=== PATIENT | female | born 1975 | race Caucasian/White ===

== ENCOUNTER 2018-09-01 18:14 | Emergency (ER) | payer OTHER ==
[2018-09-01 18:41] VITALS: BP 139/70
--- NOTE | 2018-09-24 15:09 | UC ---
Throat Pain/Nasal Jann HPI - HPI Summary HPI Summary: Ill since Monday with URI symptoms - History of Current Complaint Chief Complaint: UCGeneralIllness Stated Complaint: SORE THROAT,FEVER,ACHY Time Seen by Provider: 09/01/18 18:46 Hx Obtained From: Patient Hx Last Menstrual Period: 08/20/18 ?: No Onset/Duration: Gradual Onset Severity: Mild Pain Intensity: 10 Pain Scale Used: 0-10 Numeric Cough: Nonproductive Associated Signs & Symptoms: Positive: Sinus Discomfort, Nasal Discharge - Allergies/Home Medications Allergies/Adverse Reactions: Allergies Allergy/AdvReac Type Severity Reaction Status Date / Time Penicillins Allergy Unknown Verified 09/01/18 18:38 Reaction Details Sulfa (Sulfonamide Allergy Rash Verified 09/01/18 18:38 Antibiotics) Home Medications: Home Medications Acetaminophen [Tylenol Extra Strength] 500 mg PO DAILY 09/01/18 [History Confirmed 09/01/18] Nebivolol HCl [Bystolic] 10 g PO BID 09/01/18 [History Confirmed 09/01/18] PMH/Surg Hx/FS Hx/Imm Hx Previously Healthy: Yes - Surgical History Surgical History: Yes Surgery Procedure, Year, and Place: CHOLECYSTECTOMY. ECTOPIC - Family History Known Family History: Negative: Cardiac Disease, Diabetes - Social History Alcohol Use: Rare Substance Use Type: None Smoking Status (MU): Never Smoked Tobacco Review of Systems All Other Systems Reviewed And Are Negative: Yes Constitutional: Positive: Fever Skin: Positive: Negative Eyes: Positive: Negative ENT: Positive: Ear Ache, Nasal Discharge, Sinus Congestion Respiratory: Positive: Cough - Dry non-productive cough Cardiovascular: Positive: Negative Gastrointestinal: Positive: Negative Genitourinary: Positive: Negative Motor: Positive: Negative Neurovascular: Positive: Negative Musculoskeletal: Positive: Negative Neurological: Positive: Negative Psychological: Positive: Negative Is Patient Immunocompromised?: No Physical Exam Triage Information Reviewed: Yes Appearance: Well-Appearing, No Pain Distress, Well-Nourished Vital Signs: Initial Vital Signs Temp 97.3 F 09/01/18 18:36 Pulse 73 09/01/18 18:36 Resp 18 09/01/18 18:36 BP 139/70 09/01/18 18:36 Pulse Ox 99 09/01/18 18:36 Vital Signs Reviewed: Yes Eye Exam: Normal ENT: Positive: Hearing grossly normal, Pharynx normal, Nasal congestion, Nasal drainage - Clear nasal coryza, TMs normal, Uvula midline. Negative: Tonsillar swelling, Tonsillar exudate, Trismus, Muffled voice Neck exam: Normal Respiratory Exam: Normal Cardiovascular Exam: Normal Abdominal Exam: Normal Bowel Sounds: Positive: Present Musculoskeletal Exam: Normal Neurological Exam: Normal Psychological Exam: Normal Skin Exam: Normal Throat Pain/Nasal Course/Dx - Course Course Of Treatment: Comfortable here. - Differential Dx/Diagnosis Differential Diagnosis/HQI/PQRI: URI Provider Diagnosis: URI (upper respiratory infection) Discharge - Sign-Out/Discharge Documenting (check all that apply): Patient Departure All imaging exams completed and their final reports reviewed: No Studies - Discharge Plan Condition: Good Disposition: HOME Patient Education Materials: Upper Respiratory Infection (DC) Referrals: Jessie Crowell NP [Primary Care Provider] - Additional Instructions: Increase fluids, follow up with your primary care provide if no improvement in 4 -5 days or if worsening symptoms. - Billing Disposition and Condition Condition: GOOD Disposition: Home
== END 2018-09-01 19:21 | disposition home or self-care (01) ==
LOC: UCCORT 18:14
DX: J06.9 Acute upper respiratory infection, unspecified (principal); Z88.0 Allergy status to penicillin; Z88.2 Allergy status to sulfonamides
CPT/HCPCS: 99211; G0463